=== PATIENT | male | born 1965 | race Caucasian/White ===

== ENCOUNTER 2016-09-10 22:34 | Emergency (ER) | payer OTHER ==
[~2016-09-10] VITALS: Ht 177.8 cm; Wt 84.5 kg
[2016-09-10 22:36] VITALS: Ht 177.8 cm; Wt 84.5 kg
--- NOTE | 2016-09-10 23:26 | ERD ---
ER Documentation Chief Complaint Date/Time DATE: 09/10/16 TIME: 23:24 Chief Complaint sob x 1 day, audible wheezing HPI This a 51-year-old male who presents the emergency department today complaining of cough for the past 5 days. Patient states he had fever 2 days ago. States that when he coughs he feels like he cannot catch his breath that his throat closes up. States something similar happened 4 months ago but he did not take any antibiotics. ROS All systems reviewed and are negative except as per history of present illness. Medications Home Meds Active Scripts Azithromycin* (Zithromax*) 250 Mg Tablet, 250 MG PO .ZPACK DIRECTED, #6 TAB TAKE 500 MG (2 TABS) THE FIRST DAY THEN 250 MG (1 TAB) DAYS 2-5 Prov:FANTASMA MCKOY PA-C 09/11/16 Albuterol Sulfate* (Proair HFA*) 8.5 Gm Hfa.aer.ad, 2 PUFF INH Q4, #1 INHALER Prov:FANTASMA MCKOY PA-C 09/11/16 PMhx/Soc History of Surgery: No Anesthesia Reaction: No Hx Neurological Disorder: No Hx Respiratory Disorders: No Hx Cardiac Disorders: No Hx Psychiatric Problems: No Hx Miscellaneous Medical Probl: No Hx Alcohol Use: Yes (occasionally) Hx Substance Use: No Hx Tobacco Use: No Smoking Status: Never smoker Physical Exam Vitals Vital Signs Date Time Temp Pulse Resp B/P Pulse Ox O2 Delivery O2 Flow Rate FiO2 09/11/16 03:30 98.5 84 18 126/73 95 Room Air 09/11/16 01:26 68 20 96 21 09/10/16 22:36 98.3 73 22 176/88 98 Physical Exam Const: No acute distress Head: Atraumatic Eyes: Normal Conjunctiva ENT: Ears TMs normal. Nose no drainage. Throat unable to visualize posterior pharynx. Neck: Full range of motion..~ No meningismus. Resp: Clear to auscultation bilaterally. No absent breath sounds. Mild faint wheezing by Cardio: Regular rate and rhythm, no murmurs Skin: No petechiae or rashes Neur: Awake and alert Psych: Normal Mood and Affect Result Diagram: 09/10/16 2330 09/10/16 2330 Results 24 hrs Laboratory Tests Test 09/10/16 23:30 White Blood Count 7.410^3/ul Red Blood Count 4.2510^6/ul Hemoglobin 12.0g/dl Hematocrit 36.8% Mean Corpuscular Volume 86.6fl Mean Corpuscular Hemoglobin 28.2pg Mean Corpuscular Hemoglobin Concent 32.6g/dl Red Cell Distribution Width 13.6% Platelet Count 53386^3/UL Mean Platelet Volume 10.7fl Neutrophils % 73.8% Lymphocytes % 13.7% Monocytes % 9.3% Eosinophils % 2.6% Basophils % 0.3% Nucleated Red Blood Cells % 0.0/100WBC Neutrophils # 5.510^3/ul Lymphocytes # 1.010^3/ul Monocytes # 0.710^3/ul Eosinophils # 0.210^3/ul Basophils # 0.010^3/ul Nucleated Red Blood Cells # 0.010^3/ul Sodium Level 139mmol/L Potassium Level 3.8mmol/L Chloride Level 105mmol/L Carbon Dioxide Level 25mmol/L Anion Gap 13 Blood Urea Nitrogen 19mg/dl Creatinine 1.00mg/dl Glucose Level 108mg/dl Calcium Level 8.6mg/dl Total Bilirubin 0.2mg/dl Direct Bilirubin 0.00mg/dl Indirect Bilirubin 0.2mg/dl Aspartate Amino Transf (AST/SGOT) 36IU/L Alanine Aminotransferase (ALT/SGPT) 29IU/L Alkaline Phosphatase 67IU/L Total Protein 7.6g/dl Albumin 4.0g/dl Globulin 3.60g/dl Albumin/Globulin Ratio 1.11 Current Medications Medications (Trade) Dose Ordered Sig/Farzana Route PRN Reason Start Time Stop Time Status Last Admin Dose Admin Sodium Chloride (NS) 100 ml @ ud STK-MED ONCE .ROUTE 09/11/16 00:22 09/11/16 00:23 DC 09/11/16 00:34 Iohexol (Omnipaque 300mg/ ml) 150 ml STK-MED ONCE .ROUTE 09/11/16 00:22 09/11/16 00:23 DC 09/11/16 00:34 Albuterol (Proventil 0.083% (Neb)) 5 mg ONCE STAT NEB 09/11/16 01:15 09/11/16 01:16 DC 09/11/16 01:18 Ipratropium Malone (Atrovent 0.02% (Neb)) 0.5 mg ONCE STAT NEB 09/11/16 01:15 09/11/16 01:16 DC 09/11/16 01:18 Dexamethasone 10 mg 10 mg ONCE STAT IM 09/11/16 01:15 09/11/16 01:16 DC 09/11/16 01:20 Sodium Chloride (NS) 500 ml @ 500 mls/hr Q1H ONCE IV 09/11/16 02:00 09/11/16 02:59 DC 09/11/16 01:59 DIAGNOSTIC IMAGING REPORT Patient: JUAQUIN RUST : 1965 Age: 51 Sex: M MR #: [id number] DOS: 09/10/16 0000 Ordering MD: FANTASMA MCKOY PA-C Location: [facility] Room/Bed: PROCEDURE: CHEST - 1 VIEW CLINICAL INDICATION: 51-year-old male with shortness of breath and cough. TECHNIQUE: A single frontal AP portable view of the chest was performed. The images were reviewed on a PACS workstation. COMPARISON: None. FINDINGS: The cardiomediastinal silhouette has a normal appearance. There is no evidence for an infiltrate. There is no evidence for congestive heart failure. There is no evidence for pneumothorax. The osseous structures are intact. IMPRESSION: No evidence for active cardiopulmonary disease. .Eric Benoit MD, MD Date Time Electronically viewed and signed by .Eric Benoit MD, MD on 09/11/2016 00:41 .M/ CC: FANTASMA MCKOY PA-C NOSTIC IMAGING REPORT Patient: JUAQUIN RUST : 1965 Age: 51 Sex: M MR #: [id number] DOS: 09/10/16 0000 Ordering MD: FANTASMA MCKOY PA-C Location: [facility] Room/Bed: PROCEDURE: CT Neck with contrast CLINICAL INDICATION: Difficulty breathing TECHNIQUE: CT of the neck was performed following the intravenous administration of 100 cc Omnipaque 300 IV Contrast. Axial images were obtained through the neck with multiplanar reformatted images generated from the axial acquired data. The administered radiation dose was CTDI vol = 8.9 mGy, DLP = 260 mGy-cm. COMPARISON: No pertinent prior examinations were submitted for comparison. FINDINGS: Skull/Brain: The visualized portions of the brain are grossly unremarkable.The visualized orbits are unremarkable. Moderate mucosal thickening is noted throughout the paranasal sinuses. The bilateral mastoid air cells are within normal limits. Parotid glands: Unremarkable Submandibular glands: Unremarkable Thyroid gland: Unremarkable Vasculature: Unremarkable Lymph nodes: Multiple small lymph nodes are identified in the neck in levels I- V none of which are not pathologically enlarged. The lymph nodes are relatively bilateral and symmetric in distribution. Aerodigestive tract: There is streak artifact from dental hardware limiting evaluation of the oral cavity.There is no definite evidence of aerodigestive tract effacement. Other: The lung apices are unremarkable. Osseous structures: No destructive lytic or blastic osseous lesion is identified. IMPRESSION: No mass or fluid collection. No cervical adenopathy. RPTAT: HIKT .Rufus Nino MD, MD Date Time Electronically viewed and signed by .Rufus Nino MD, MD on 09/11/2016 01:35 .T/ CC: FANTASMA MCKOY PA-C [facility] This a 51-year-old male who presents to the emergency department today complaining of some shortness of breath and cough for the past 5 days. Patient was complaining that he feels that his throat closes up when he coughs. I was not able to visualize the patient's posterior pharynx as he was unable to open his mouth wide enough for me to visualize. Patient did have some voice changes and therefore it did obtain a chest x-ray as well as a CT neck soft tissue with contrast. Laboratory work shows no elevated white blood cell count. His hemoglobin and hematocrit is mildly decreased. Platelets are within normal limits. Electrolytes are within normal limits. Glucose within normal limits. Liver functions within normal limits. Chest x-ray shows no evidence for active cardiopulmonary disease. Low suspicion for pneumonia, PE, abscess, pleural effusion CT neck soft tissue with contrast shows no mass or fluid collection. There is no cervical adenopathy. There are multiple small lymph nodes identified in the neck none which are pathologically enlarged. There is symmetric in distribution. Patient symptoms at this time consistent with shortness of breath of uncertain etiology but may be related to laryngospasm posttussive. Patient was given a breathing treatment as well as IV fluids and Decadron here in the emergency department. Patient given a prescription for azithromycin, inhaler for home. Patient was given further information for ENT specialist as well At this time the patient is stable for discharge and outpatient management. Patient should follow up with their PCP in the next 1-2 days. They may return to the emergency department sooner for any persistent or worsening of symptoms. Patient understood and agreed with the plan. Departure Diagnosis: Primary Impression: Shortness of breath Condition: FANTASMA Thakkar PA-C Sep 10, 2016 23:26
[2016-09-10 23:45] LABS: ADD SCAN DIFF NO
[2016-09-10 23:46] LABS: BASOPHILS % 0.3 % (0.0-2.0); EOSINOPHILS # 0.2 10^3/ul (0.0-0.5); EOSINOPHILS % 2.6 % (0.0-7.0); HEMATOCRIT 36.8 % (42.0-52.0); LYMPHOCYTES % 13.7 % (15.0-51.0); MEAN CORPUSCULAR HEMOGLOBIN 28.2 pg (29.0-33.0); MEAN CORPUSCULAR HGB CONC 32.6 g/dl (32.0-37.0); MEAN CORPUSCULAR VOLUME 86.6 fl (82.0-101.0); MEAN PLATELET VOLUME 10.7 fl (7.4-10.4); MONOCYTE # 0.7 10^3/ul (0.3-0.9); MONOCYTES % 9.3 % (0.0-11.0); NEUTROPHIL # 5.5 10^3/ul (1.6-7.5); NEUTROPHILS % 73.8 % (39.0-77.0); PLATELET COUNT 259 10^3/UL (140-415); RED BLOOD COUNT 4.25 10^6/ul (4.70-6.10); RED CELL DISTRIBUTION WIDTH 13.6 % (11.5-14.5); WHITE BLOOD COUNT 7.4 10^3/ul (4.8-10.8)
[2016-09-11 00:11] LABS: ALBUMIN/GLOBULIN RATIO 1.11; BILIRUBIN,INDIRECT 0.2 mg/dl (0-1.1); BILIRUBIN,TOTAL 0.2 mg/dl (0.2-1.3); CALCIUM 8.6 mg/dl (8.4-10.2); POTASSIUM 3.8 mmol/L (3.5-5.1); TOTAL PROTEIN 7.6 g/dl (6.1-8.1)
[2016-09-11] MEDS ORDERED: IOHEXOL 300MG/ML 150 ML BTL ONE (00:22)
[2016-09-11] MEDS ORDERED: SOD CHLORIDE 0.9% 100 ML ONE (00:22)
--- NOTE | 2016-09-11 00:41 | RADRPT ---
PROCEDURE: CHEST - 1 VIEW CLINICAL INDICATION: 51-year-old male with shortness of breath and cough. TECHNIQUE: A single frontal AP portable view of the chest was performed. The images were reviewed on a PACS workstation. COMPARISON: None. FINDINGS: The cardiomediastinal silhouette has a normal appearance. There is no evidence for an infiltrate. There is no evidence for congestive heart failure. There is no evidence for pneumothorax. The osseou s structures are intact. IMPRESSION: No evidence for active cardiopulmonary disease. .Eric Benoit MD, MD Date Time Electronically viewed and signed by .Eric Benoit MD, MD on 09/11/2016 00:41 .M/
[2016-09-11] MEDS ORDERED: IPRATROPIUM (NEB) 0.5 MG/2.5 ML AMP NEB STA (01:15)
[2016-09-11] MEDS ORDERED: ALBUTEROL 0.083% (NEB) 2.5 MG/3 ML AMP NEB STA (01:15)
[2016-09-11] MEDS ORDERED: DEXAMETHASONE 10 MG/ML 1 ML INJ IM STA (01:15)
--- NOTE | 2016-09-11 01:36 | RADRPT ---
PROCEDURE: CT Neck with contrast CLINICAL INDICATION: Difficulty breathing TECHNIQUE: CT of the neck was performed following the intravenous administration of 100 cc Omnipaq ue 300 IV Contrast. Axial images were obtained through the neck with multiplanar reformatted images generated from the axial acquired data. The administered radiation dose was CTDI vol = 8.9 mGy, DLP = 260 mGy-cm. COMPARISON: No pertinent prior examinations were submitted for comparison. FINDINGS: Skull/Brain: The visualized portions of the brain are grossly unremarkable.The visualized orbits are unremarkable. Moderate mucosal thickening is noted throughout the paranasal sinuses. The bilateral mastoid air cells are within normal limits. Parotid glands: Unremarkable Submandibular glands: Unremarkable Thyroid gland: Unremarkable Vasculature: Unremarkable Lymph nodes: Multiple small lymph nodes are identified in the neck in levels I-V none of which are n ot pathologically enlarged. The lymph nodes are relatively bilateral and symmetric in distribution. Aerodigestive tract: There is streak artifact from dental hardware limiting evaluation of the oral c avity.There is no definite evidence of aerodigestive tract effacement. Other: The lung apices are unremarkable. Osseous structures: No destructive lytic or blastic osseous lesion is identified. IMPRESSION: No mass or fluid collection. No cervical adenopathy. RPTAT: HIKT .Rufus Nino MD, MD Date Time Electronically viewed and signed by .Rufus Nino MD, on 09/11/2016 01:35 .T/
[2016-09-11] MEDS ORDERED: SOD CHLORIDE 0.9% 500 ML IV ONE (02:00)
[2016-09-11 03:30] VITALS: BP 126/73; PULSE 84; RESP 18; TEMP 98.5
[2016-09-11] MEDS ORDERED: ALBU8.5H3 INH (03:33)
[2016-09-11] MEDS ORDERED: AZIT250T94 PO (03:34)
== END 2016-09-11 03:50 | disposition home or self-care (01) ==
LOC: FTE 22:34
DX: R06.02 Shortness of breath (principal)
CPT/HCPCS: 70491; 71010; 80053; 85025; 94664; J1100; J7040; Q9967; 36415; 96372

== ENCOUNTER 2017-11-02 23:49 | Emergency (ER) | END 2017-11-03 03:11 | disposition home or self-care (01) ==

== ENCOUNTER 2017-11-12 22:34 | Emergency (ER) | END 2017-11-12 23:46 | disposition left against medical advice (07) ==

== ENCOUNTER 2017-11-13 21:13 | Emergency (ER) | END 2017-11-13 23:37 | disposition home or self-care (01) ==